=== PATIENT | male | born 1940 | race Caucasian/White ===

== ENCOUNTER 2017-02-03 16:45 | Inpatient (IN) | payer MEDICARE, OTHER ==
[~2017-02-03] VITALS: Ht 180.3 cm; Wt 108.6 kg
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
[2017-02-07] MEDS ORDERED: ZESTRIL DPS20 MG PO (15:50)
[2017-02-07] MEDS ORDERED: SENOKOT-S TABL1 EACH PO (15:50)
[2017-02-07] MEDS ORDERED: ZOCOR DPS40 MG PO (15:51)
[2017-02-07] MEDS ORDERED: COLACE-DPS100 MG PO (15:51)
[2017-02-07] MEDS ORDERED: HYDROCODON-ACE1 EAC2 PO (15:51)
[2017-02-07] MEDS ORDERED: GLUCOPHAGE-DPS500 MG PO (15:52)
[2017-02-07] MEDS ORDERED: CENTRUM SILVER1 EAC1 PO (15:52)
[2017-02-07] MEDS ORDERED: TYLENOL DPS325 MG PO (15:52)
[2017-02-07] MEDS ORDERED: FISH OIL 1,0001 EAC1 PO (15:53)
[2017-02-07] MEDS ORDERED: VITAMIN D400 UNIT PO (15:53)
[2017-02-07] MEDS ORDERED: OCUVITE SOFTGE1 EACH PO (15:53)
[2017-02-07] MEDS ORDERED: ASA325 MG PO (15:54)
--- NOTE | 2017-02-23 11:12 | CO ---
ADMIT: 02/03/2017 RM/LOC: 511 [facility] MR#: [id number] [address] [address] DENNIS EDMONDSON [address] [place] [address] Consultation SEX: M AGE: 76 : 1940 DATE OF CONSULTATION: 02/04/2017 ATTENDING PHYSICIAN: Justice Gaitan CONSULTING PHYSICIAN: Erick Saucedo MD REASON FOR CONSULTATION: Right hip and right leg pain. HISTORY OF PRESENT ILLNESS: The patient is a 76-year-old male with past medical history of diabetes, hypertension, hyperlipidemia, and macular degeneration. He presented to the emergency room yesterday evening with right hip pain after falling. He had x-ray and CT scan done of the pelvis which did show a mildly displaced, somewhat comminuted acetabular fracture with good containment of the femoral head. No fractures of the proximal femur noted. He also had x-rays showing a right proximal tibia fracture which was minimally nondisplaced. He is admitted to the hospital by primary care. PAST MEDICAL HISTORY: Significant for hypertension, diabetes, hyperlipidemia, and macular degeneration. MEDICATIONS: The patient is on: 1. Lisinopril. 2. Metformin. 3. Simvastatin. 4. Multivitamin. SOCIAL HISTORY: The patient is a former smoker. Lives here in [place]. REVIEW OF SYSTEMS: Noncontributory at this time. PHYSICAL EXAMINATION: Examination of the right lower extremity, pain in the hip with any attempted range of motion here. He has tenderness to palpation over the proximal tibia. He does have some mild swelling here. Some abrasions over the anterior aspect of his knee. I do not find any gross ligamentous instability here. He appears to be otherwise distally neurovascularly intact. IMAGING: X-rays of the right knee do show a kind of an oblique fracture of the proximal tibia, does appear to extend into the plateau region here. Appears to be minimally nondisplaced. Certainly no depression, no gapping, or shortening here. CT scan of the pelvis show a comminuted right acetabular fracture with a good concentric reduction of the femoral head. There does not appear to be any subluxation or dislocation here. It does appear to involve kind of posterior wall and up into the superior dome little bit, but once again, essentially mildly displaced. ADMIT: 02/03/2017 RM/LOC: 511 [facility] MR#: [id number] [address] [address] [facility] [address] [place] [address] Consultation SEX: M AGE: 76 : 1940 ASSESSMENT: 1. Right acetabular fracture. 2. Right proximal tibia fracture. PLAN: We discussed with the family and the patient treatment options today. Agreed on non-operative treatment at this point. We are going to get him in rehab, put brace on the right lower extremity. Strict non weightbearing here. He will probably need a [facility] facility after hospitalization. They will need to watch things closely. If there appears to be any displacement of the proximal tibia, I would possibly do something to stabilize this. If any significant displacement of the acetabulum, told them he probably have to go to [place] or another trauma center for evaluation and treatment of this, although I told him I think things should heal up for him and I do not feel that this is going to require any surgical treatment at this point. They do understand and agree with the treatment plan. Erick Saucedo MD/ gracia JOB #: [id number] CC: Justice Gaitan, Attending Physician Justice Gaitan, Family Physician
--- NOTE | 2017-02-27 13:21 | DS ---
ADMIT: 02/03/2017 RM/LOC: 8 [facility] MR#: [id number] ACC#: [id number] 2620 [facility] [address] [place] [id number] DENNIS EDMONDSON [address] [place] [address] General Discharge Summary SEX: M AGE: 76 : 1940 ADMISSION DATE: 02/03/2017 DISCHARGE DATE: 02/06/2017 CONSULT: Orthopedics. PROCEDURES: None. FINAL DIAGNOSES: 1. Right acetabular fracture and right proximal tibial fracture. 2. Hypertension. 3. Diabetes. 4. High cholesterol. 5. Macular degeneration. ADMITTING PHYSICIAN: Dr. Shelton. HOSPITAL COURSE: The patient was chasing after his autistic grandson when he tripped and fell and fell on his right side. The patient complained of right hip pain, so he came into the ER. The patient was found have a right acetabular and right proximal tibial fracture. The patient was admitted. Orthopedics was consulted ultimately with a joint decision between Orthopedics and the patient, they decided to treat nonoperatively with rehab and likely long-term unit placement. The patient's pain is well controlled. He tolerated the physical therapy while in the hospital, and he was sent to the long-term unit on day 3 of hospitalization. MEDICATIONS AT TIME OF DISCHARGE: 1. Senokot b.i.d. 2. Zestril 20 mg daily. 3. Zocor 40 mg daily. 4. Metformin 1000 mg b.i.d. 5. Colace 100 mg b.i.d. p.r.n. 6. Hydrocodone 7.5/325 q.4 hours as needed. 7. Tylenol 650 mg q.4 hours. The patient's 1. Ocuvite. 2. Vitamin D. 3. Fish oil. 4. Multivitamin were restarted. ADMIT: 02/03/2017 RM/LOC: 8 [facility] MR#: [id number] 2620 [facility] [address] [place], [place] [address] DENNIS EDMONDSON [address] [place] [address] General Discharge Summary SEX: M AGE: 76 : 1940 The patient is also sent out on an aspirin 325 mg daily for 6 weeks. DISPOSITION ORDERS: 1. Accu-Cheks as needed if the patient is having low glucose symptoms. 2. Wear brace 30 degrees on the right leg at all times except when bathing. 3. Nonweightbearing on right leg with a walker. 4. Wear JOHNNY hose on both legs with 1 hour off twice a day. 5. PT and OT at long-term unit. 6. Followup appointments with Dr. Saucedo on 02/13/2017. 7. Diet as tolerated. 8. Code was full. Anyi Marquis MD Resident / Ryan Shelton MD / modl JOB #: [id number] CC: Justice Gaitan MD, Attending Physician Justice Gaitan MD, Family Physician
== END 2017-02-06 15:30 | DRG 562 ==
LOC: ER 16:45 → 5MS 19:49
PROVIDERS: ADMIT Family Medicine
DX: S82.101A Unspecified fracture of upper end of right tibia, initial encounter for closed fracture (principal); S32.401A Unspecified fracture of right acetabulum, initial encounter for closed fracture; E11.9 Type 2 diabetes mellitus without complications; I10 Essential (primary) hypertension; E78.5 Hyperlipidemia, unspecified; H35.30 Unspecified macular degeneration; S00.11XA Contusion of right eyelid and periocular area, initial encounter; W19.XXXA Unspecified fall, initial encounter; S50.312A Abrasion of left elbow, initial encounter; S50.311A Abrasion of right elbow, initial encounter; S60.419A Abrasion of unspecified finger, initial encounter; Z79.84 Long term (current) use of oral hypoglycemic drugs; Z87.891 Personal history of nicotine dependence; Z82.49 Family history of ischemic heart disease and other diseases of the circulatory system; E78.00 Pure hypercholesterolemia, unspecified